=== PATIENT | male | born 1975 | race Caucasian/White ===

== ENCOUNTER 2022-07-29 23:09 | Inpatient (IN) ==
[2022-07-30] MEDS ORDERED: Naloxone 0.4 MG/ML INJ IVP PRN (02:20)
[2022-07-30] MEDS ORDERED: Ondansetron 4 MG/2 ML VIAL IVP PRN (02:20)
[2022-07-30] MEDS ORDERED: *HR* LORazepam 2 MG/ML VIAL IVP PRN ×3 (02:55→04:00)
[2022-07-30 03:10] LABS: Basophils # 0.1 K/mcL (0.0-0.2); Basophils % 1.2 %; Eosinophils # 0.2 K/mcL (0.0-0.6); Eosinophils % 2.5 %; Hematocrit 36.1 % (37.5-50.1); Hemoglobin 12.5 g/dL (12.9-16.9); Immature Granulocytes % 0.6 % (0-4); Immature Platelets 11.7 % (1.1-6.1); Lymphocytes # 1.9 K/mcL (0.6-4.6); Lymphocytes % 28.6 %; Mean Corpuscular HGB Conc 34.6 g/dL (31.6-35.5); Mean Corpuscular Hemoglobin 32.5 pg (28.0-33.3); Mean Corpuscular Volume 93.8 fL (83.0-100.0); Mean Platelet Volume 11.1 fL (9.4-12.4); Monocytes # 0.4 K/mcL (0.0-1.3); Monocytes % 5.7 %; Neutrophils # 4.2 K/mcL (1.6-8.9); Red Blood Count 3.85 M/mcL (4.19-5.50); Red Cell Distribution Width 12.8 % (11.5-14.5); Segmented Neutrophils % 61.4 %; White Blood Count 6.8 K/mcL (4.3-11.1)
[2022-07-30 03:12] LABS: Platelet Count 66 K/mcL (140-400)
[2022-07-30 03:15] LABS: INR 1.1; Prothrombin Time 12.6 Seconds (9.4-12.1)
[2022-07-30 03:18] LABS: Activated Partial Thrombo Time 31.3 Seconds (26.0-36.0)
[2022-07-30 03:22] LABS: Alanine Aminotransferase 73 Units/L (7-52); Albumin 3.3 g/dL (3.5-5.7); Alkaline Phosphatase 87 Units/L (34-104); Aspartate Amino Transferase 173 Units/L (13-39); BUN/Creatinine Ratio 3 (6-26); Bilirubin,Direct 1.6 mg/dL (0.0-0.2); Bilirubin,Indirect 2.6 mg/dL (0.0-1.0); Bilirubin,Total 4.2 mg/dL (0.3-1.0); Blood Urea Nitrogen 3 mg/dL (6-20); Calcium 8.8 mg/dL (8.6-10.3); Carbon Dioxide 26 mEq/L (23-29); Chloride 96 mEq/L (98-107); Chol/HDL Ratio 2.3 (0-4.9); Globulin 3.2 g/dL (2.4-3.5); Glucose 103 mg/dL (70-105); Magnesium 1.8 mg/dL (1.6-2.6); Osmolality,Calculated 263 (280-300); Phosphorous 2.1 mg/dL (2.7-4.5); Potassium 3.6 mEq/L (3.5-5.1); Sodium 128 mEq/L (136-145); Total Protein 6.5 g/dL (6.4-8.9)
[2022-07-30 03:29] LABS: Ethanol < 10 mg/dL (Less than 10); Lipase 28 Units/L (11-82)
[2022-07-30] MEDS ORDERED: Ipratropium/Albuterol Neb 3 ML IH PRN (04:00)
[2022-07-30] MEDS: Pantoprazole 40 MG in 0.9 % Sodium Chloride Mini Bag 100 ML IVC SCH ×4 (04:14→22:15)
[2022-07-30] MEDS: 0.9 % Sodium Chloride 1,000 ML IVC SCH ×2 (04:14→12:20)
[2022-07-30 04:24] LABS: Folate 18.6 ng/mL (3.0-16.0)
[2022-07-30 04:25] LABS: Vitamin B12 923 pg/mL (250-1100)
[2022-07-30 05:18] LABS: Hepatitis B Surface Antigen Nonreactive (Nonreactive)
[2022-07-30 05:30] LABS: % Iron Saturation 44 % (20-55); Iron 96 mcg/dL (65-175); Transferrin 155 mg/dL (203-362)
[2022-07-30 05:47] LABS: Hepatitis B Core IgM Nonreactive (Nonreactive); Hepatitis C Virus Antibody Nonreactive (Nonreactive)
[2022-07-30 05:49] LABS: Hepatitis A Antibody IgM Nonreactive (Nonreactive)
[2022-07-30 05:59] LABS: Ferritin > 1500 ng/mL (20-250)
[2022-07-30] MEDS: Vitamin B Complex/Vit C/Vit E 1 EACH TABLET PO SCH (07:43)
[2022-07-30] MEDS: Thiamine (B-1) 100 MG TABLET PO SCH (07:43)
[2022-07-30] MEDS: Folic Acid 1 MG TABLET PO SCH (07:43)
[2022-07-30] MEDS: cefTRIAXone 1,000 MG in 0.9 % Sodium Chloride Mini Bag 100 ML IVPB SCH (12:12)
[2022-07-30] MEDS: Octreotide 400 MCG in 0.9 % Sodium Chloride 100 ML IVC SCH ×2 (14:29→15:33)
[2022-07-30 14:45] LABS: Bilirubin,Urine Negative (Negative); Blood,Urine Negative (Negative); Clarity,Urine Clear (Clear); Color,Urine Dark-Yellow (Yellow); Glucose,Urine (UA) Normal (Normal); Ketones,Urine Negative (Negative); Leukocyte Esterase,Urine Negative (Negative); Nitrite,Urine Negative (Negative); Protein,Urine Negative (Neg-Trace); Urobilinogen,Urine >=8.0 mg/dL (Normal)
[2022-07-30 14:55] LABS: Sodium, Urine 71.9 mEq/L
[2022-07-30 16:03] LABS: Amphetamine Screen,Urine Negative ng/mL (Cutoff=1000); Barbiturate Screen,Urine Negative ng/mL (Cutoff=200); Benzodiazepines Screen,Urine Negative ng/mL (Cutoff=200); Cannabinoid Screen,Urine Negative ng/mL (Cutoff = 50); Cocaine Screen,Urine Negative ng/mL (Cutoff= 300); Opiate Screen,Urine Positive ng/mL (Cutoff=300); Phencyclidine Screen,Urine Negative ng/mL (Cutoff=25)
[2022-07-30] MEDS ORDERED: SODIUM CHLORIDE/NAHCO3/KCL/PEG 4,000 ML SOLN.RECON PO ONE (17:00)
[2022-07-30] MEDS ORDERED: Thiamine (B-1) 100 MG, Folic Acid 1 MG, MVI, adult with vitamin K 10 ML in 0.9 % Sodi... IVPB SCH (18:00)
[2022-07-31] MEDS: Pantoprazole 40 MG in 0.9 % Sodium Chloride Mini Bag 100 ML IVC SCH ×4 (02:50→23:45)
[2022-07-31] MEDS: Octreotide 400 MCG in 0.9 % Sodium Chloride 100 ML IVC SCH ×2 (04:12→19:00)
[2022-07-31] MEDS: cefTRIAXone 1,000 MG in 0.9 % Sodium Chloride Mini Bag 100 ML IVPB SCH (09:02)
[2022-07-31] MEDS: Vitamin B Complex/Vit C/Vit E 1 EACH TABLET PO SCH (09:03)
[2022-07-31] MEDS: Thiamine (B-1) 100 MG TABLET PO SCH (09:03)
[2022-07-31] MEDS: Folic Acid 1 MG TABLET PO SCH (09:03)
[2022-07-31] MEDS ORDERED: *HR* Midazolam HCl 2 MG/2 ML VIAL ONE (12:58)
[2022-07-31] MEDS ORDERED: Lidocaine -MPF 2% 2 ML VIAL ONE (13:33)
[2022-07-31] MEDS ORDERED: Simethicone 40 MG/0.6 ML MLS ONE (13:46)
[2022-07-31] MEDS ORDERED: Simethicone 40 MG/0.6 ML MLS IR ONE (13:47)
[2022-07-31 18:23] LABS: Eosinophils % 1.8 %; Hematocrit 37.5 % (37.5-50.1); Immature Granulocytes % 0.4 % (0-4); Mean Corpuscular Volume 98.4 fL (83.0-100.0); Monocytes % 6.1 %; Red Blood Count 3.81 M/mcL (4.19-5.50); Red Cell Distribution Width 13.1 % (11.5-14.5)
[2022-07-31 18:25] LABS: Alanine Aminotransferase 64 Units/L (7-52); Albumin 3.4 g/dL (3.5-5.7); Alkaline Phosphatase 80 Units/L (34-104); Aspartate Amino Transferase 120 Units/L (13-39); BUN/Creatinine Ratio 4 (6-26); Bilirubin,Total 2.1 mg/dL (0.3-1.0); Blood Urea Nitrogen 3 mg/dL (6-20); Calcium 8.4 mg/dL (8.6-10.3); Carbon Dioxide 26 mEq/L (23-29); Chloride 98 mEq/L (98-107); Globulin 3.3 g/dL (2.4-3.5); Glucose 175 mg/dL (70-105); Magnesium 1.6 mg/dL (1.6-2.6); Osmolality,Calculated 269 (280-300); Potassium 3.4 mEq/L (3.5-5.1); Sodium 129 mEq/L (136-145); Total Protein 6.7 g/dL (6.4-8.9)
[2022-07-31 18:26] LABS: Basophils # 0.1 K/mcL (0.0-0.2); Basophils % 0.9 %; Eosinophils # 0.2 K/mcL (0.0-0.6); Hemoglobin 12.5 g/dL (12.9-16.9); Immature Platelets 8.9 % (1.1-6.1); Mean Corpuscular HGB Conc 33.3 g/dL (31.6-35.5); Mean Corpuscular Hemoglobin 32.8 pg (28.0-33.3); Mean Platelet Volume 10.9 fL (9.4-12.4); Monocytes # 0.5 K/mcL (0.0-1.3); Neutrophils # 5.5 K/mcL (1.6-8.9); Segmented Neutrophils % 66.8 %; White Blood Count 8.2 K/mcL (4.3-11.1)
[2022-07-31 18:56] LABS: Platelet Count 86 K/mcL (140-400)
[2022-07-31] MEDS ORDERED: *HR* LORazepam 2 MG/ML VIAL IVP ONE (21:34)
[2022-07-31 22:55] LABS: Estimated Average Glucose 88 mg/dl; Hemoglobin A1C 4.7 %
[2022-08-01] MEDS ORDERED: Octreotide 400 MCG in 0.9 % Sodium Chloride 100 ML IVC SCH (03:00)
[2022-08-01] MEDS: Pantoprazole 40 MG in 0.9 % Sodium Chloride Mini Bag 100 ML IVC SCH (05:32)
[2022-08-01 05:38] LABS: Alanine Aminotransferase 59 Units/L (7-52); Albumin 3.2 g/dL (3.5-5.7); Albumin/Globulin Ratio 1.1 (1.1-2.2); Alkaline Phosphatase 73 Units/L (34-104); Aspartate Amino Transferase 103 Units/L (13-39); BUN/Creatinine Ratio 5 (6-26); Bilirubin,Total 2.4 mg/dL (0.3-1.0); Blood Urea Nitrogen 3 mg/dL (6-20); Calcium 8.4 mg/dL (8.6-10.3); Carbon Dioxide 26 mEq/L (23-29); Chloride 100 mEq/L (98-107); Globulin 2.9 g/dL (2.4-3.5); Glucose 127 mg/dL (70-105); Osmolality,Calculated 276 (280-300); Potassium 2.9 mEq/L (3.5-5.1); Sodium 134 mEq/L (136-145); Total Protein 6.1 g/dL (6.4-8.9)
[2022-08-01] MEDS ORDERED: Potassium Effervescent 25 MEQ TABLET.EFF PO ONE (07:55)
[2022-08-01] MEDS: Thiamine (B-1) 100 MG TABLET PO SCH (09:52)
[2022-08-01] MEDS: Vitamin B Complex/Vit C/Vit E 1 EACH TABLET PO SCH (09:52)
[2022-08-01] MEDS: Folic Acid 1 MG TABLET PO SCH (09:52)
[2022-08-01] MEDS ORDERED: *HR* HYDROcodone/Acet 7.5/325 mg TABLET PO PRN (10:09)
[2022-08-01 12:08] VITALS: BP 149/78; PULSE 74; TEMP 98.2; O2SAT 96
[2022-08-01] MEDS ORDERED: Pantoprazole 40 MG VIAL IVP SCH (18:00)
== END 2022-08-01 14:05 | disposition home or self-care (01) | DRG 377 ==
LOC: 3ANU → SUATTDRO 07-30 01:47
PROVIDERS: ADMIT Internal Medicine; ATTEND Hospitalist